=== PATIENT | female | born 1940 | race Caucasian/White ===

== ENCOUNTER → 2017-05-05 | Outpatient (CLI) | payer MEDICARE, OTHER ==
[~2017-05-05] MED LIST: ASPI81TA94 PO; ATOR40TA24 PO; BARIUM SULFATE 148 GM POWDER ONE; BARIUM SULFATE 240 ML ORAL SUS (NECTAR) ONE; CEP250 PO; CEPH500T7 PO; METO-235 PO; METO100T20 PO; METO50TA19 PO; MULT-865 PO; RANI-324 PO; UBID100C48 PO; [UNRECOGNIZED DRUG - CODE] PO
--- NOTE | 2017-05-05 15:06 | SLP MODIFIED BARIUM SWALLOW ---
Speech Language Pathology Modified Barium Swallow Evaluation Report Date of Evaluation: 05-05-17 Patient Name: Violet Carmen Patient : 1940 Physician: Michael Chavez MD Clinician: Nalini Yi M.S., [facility]-FASHION DIRECTOR BACKGROUND The patient is a 76 yr old female. She was referred for an MBS to assess swallow structure and function as indicated by s/s of pharyngeal dysphagia including globus sensation. Pt reported symptoms at approximate level xiphoid process during the evaluation with regular food consistencies and the barium pill. She has a past medical history of GERD and is currently taking prescription and over the counter medications. She had an anterior fusion of cervical vertebrae approx 20 years ago and plate and screws were visualized on the x-ray. Oxygen Supplementation: No Level of Consciousness: Non altered Cognitive/Linguistic: intact Orientation: x4 Language: -expressive: nonaphasic -receptive: nonaphasic Speech: -non-apraxic -non-dysarthric Voice -Dysphonia: none -Nasal emission: No -Hypernasality: No -Wet Vocal Quality: No Non-verbal Oral Structure and Function: within functional limits for speech and swallow Pain with Swallow: Denies pain but describes a globus sensation inferior to larynx which she describes as "uncomfortable". She also reported that she occasionally feels some mild pain in the back of her neck at approximate level C5/C6 when dysphagia symptoms are severe. MODIFIED BARIUM SWALLOW In conjunction with radiology, lateral view with trials of the following consistencies: thin barium liquid (noncarbonated), barium marked pureed, mechanical soft, and regular food consistencies, and a 1cm barium pill. ORAL STAGE Thin Liquids: no evidence of dysphagia . WNL Pureed Foods: no evidence of dysphagia . WNL Mechanical Soft Foods: no evidence of dysphagia . WNL Regular Foods: no evidence of dysphagia . WNL. PHARYNGEAL STAGE Thin Liquid: no evidence of dysphagia WNL. Pureed Food: no evidence of dysphagia WNL. Mechanical Soft Foods: no evidence of dysphagia WNL. Regular Food Consistency: no evidence of dysphagia WNL. Penetration/Aspiration Scale*: Thin liquid: Score of 1= Contrast does not enter airway Puree: Score of 1= Contrast does not enter airway Soft and regular solids: Score of 1= Contrast does not enter airway *(Luis et al. 1996) ESOPHAGEAL STAGE Peristaltic movement appears to be WNL Cervical Esophagus: Materials witnessed clearing from cervical esophagus WNL. Pt reports that she occasionally feels some mild pain in the back of her neck at approximate level C5/C6 when dysphagia symptoms (globus sensation) are severe. Thoracic Esophagus: Pill lodged in mid 1/3 or esophagus. Pt correctly localized the position of the lodged pill and reported discomfort in that area. LILLY: Non witnessed. Laryngopharyngeal Reflux (LPR) None witnessed. BARIUM PILL: 1cm barium pill taken with thin liquids lodged in middle 1/3 of esophagus. Several bites of solids and liquids were used to dislodge the pill. SUMMARY Aspiration Risk: Low. No oral or pharyngeal stage dysphagia witnessed. No laryngeal penetration or aspiration witnessed. Esophageal Dysphagia suspected with possible stenosis or diverticulum in approximately middle 1/3 or esophagus. A 1cm barium pill taken with thin liquids lodged in middle 1/3 of esophagus. The patient accurately localized the position of the lodged pill and reported discomfort in that area. Several bites of solids and liquids were necessary to dislodge the pill. The pill then entered the stomach without further s/s of dysphagia RECOMMENDATIONS 1. Further Evaluation: Upper GI to further assess for possible esophageal dysphagia 2. Speech Therapy: Not recommended at this time. 3. Education provided: small bites, take pills with purees to assist with esophageal clearance. Thank you for this referral. Please call [phone] to contact the FASHION DIRECTOR. Nalini Yi M.S., [facility]-FASHION DIRECTOR Physician Signature Date MTDD
--- NOTE | 2017-05-05 17:00 | RADIOLOGY IMAGING REPORT ---
FACILITY: [facility] - [place] PATIENT NAME: Violet Carmen : 1940 MR: [id number] V: [id number] EXAM DATE: ORDERING PHYSICIAN: EUFEMIA LATHAM TECHNOLOGIST: Location: [facility] [place] Patient: Violet Carmen : 1940 Visit/Account:[id number] Date of Sevice: 05/05/2017 Exam type: ESOPH VIDEO SWALLOWING History: feeling of things getting stuck but never does Comparison: None. Findings: The modified barium swallow was performed by the speech pathologist. The patient received thin bariu m and various solids substances and a barium tablet. There is moderate esophageal dysphasia. The 12 mm barium tablet was lodged in the midesophagus. The tablet did not pass distally into the stomach until the patient swallowed many boluses of barium and food substances. Please see the speech pathol ogist report for complete details. The fluoroscopy dose area product was 555.37 micro-Booth per meter squared IMPRESSION: 1. As above Report Dictated By: Kenzie Hernandez MD at 05/05/2017 4:54 PM Report E-Signed By: Kenzie Hernandez MD at 05/05/2017 4:55 PM WSN:[email or web address]
== END ==
LOC: RAD 01:18
PROVIDERS: ATTEND Internal Medicine
DX: R13.19 Other dysphagia (principal)
CPT/HCPCS: 74230

== ENCOUNTER → 2017-12-05 | Outpatient (CLI) | payer MEDICARE, OTHER ==
[~2017-12-05] MED LIST changes: +ACET500T68 PO; +ASPI-1471 PO; -BARIUM SULFATE 148 GM POWDER ONE; -BARIUM SULFATE 240 ML ORAL SUS (NECTAR) ONE; +CINN500C12 PO; +MAGN250T34 PO; +NAPR-1043 PO; +OMEP-125 PO; -RANI-324 PO; +RANI-366 PO; +[UNRECOGNIZED DRUG - CODE] PO
== END ==
LOC: LAB 14:10
PROVIDERS: ATTEND Family Medicine
DX: E11.9 Type 2 diabetes mellitus without complications (principal)
CPT/HCPCS: 36415; 83036; 84443

== ENCOUNTER → 2017-12-23 | Outpatient (CLI) | payer MEDICARE, OTHER ==
--- NOTE | 2017-12-30 13:16 | RADIOLOGY IMAGING REPORT ---
FACILITY: [facility] - [place] PATIENT NAME: LAURI MIKE : [id number] MR: [id number] V: [id number] EXAM DATE: [id number] ORDERING PHYSICIAN: RIKY GRACIA TECHNOLOGIST: Betty Fuentes PROCEDURE: MAMMOGRAM SCREENING LEFT UNILATERAL WITH CAD ASSISTED INTERPRETATION & 3D TOMOSYNTHESIS COMPARISON: 11/30/16 & priors to 04/13/12 INDICATIONS: screening/Previous Right mastectomy FINDINGS: Left breast parenchyma is heterogeneously dense. There are no mammographic findings concerning for malignancy. No significant interval change. DIAGNOSTIC CATEGORY 1--NEGATIVE. RECOMMENDATIONS: ROUTINE MAMMOGRAM AND CLINICAL EVALUATION. IMPRESSION: BIRADS 1: Negative. Follow up screening mammogram in 1 year. Dictated by: Michael Beard on 12/23/2017 at 15:57 Transcribed by: ALTON on 12/26/2017 at 9:59 Approved by: Corey Metzger on 12/30/2017 at 13:16 [facility]
== END ==
LOC: MAMO 02:13
PROVIDERS: ATTEND Family Medicine
DX: Z12.31 Encounter for screening mammogram for malignant neoplasm of breast (principal); Z85.3 Personal history of malignant neoplasm of breast; Z90.11 Acquired absence of right breast and nipple
CPT/HCPCS: 77063; 77067

== ENCOUNTER → 2018-05-08 | Outpatient (CLI) | payer MEDICARE, OTHER ==
[~2018-05-08] MED LIST changes: +ALBU2.5V36 INH; +BENZ200C15 PO; +PRED20TA6 PO
--- NOTE | 2018-05-08 16:30 | RADIOLOGY IMAGING REPORT ---
FACILITY: PATIENT NAME: Violet Carmen : 1940 MR: [id number] V: [id number] EXAM DATE: ORDERING PHYSICIAN: RIKY GRACIA TECHNOLOGIST: Location: [facility] [place] Patient: Violet Carmen : 1940 Visit/Account:[id number] Date of Sevice: 05/08/2018 DEXA Scan Clinical history: Postmenopausal. Comparison: DEXA scan from 04/07/2016. LUMBAR SPINE: The bone mineral density (BMD) measured from L1-L4 correlates with a Z-score of -4.2 and a T-score of -6.4 which is osteoporosis as defined by the World Health Organization. The corresponding risk of f racture in the lumbar spine is greater than 16 times increased compared with a young adult reference population. This value has decrease by 68.5 % since the prior study. More than 5% change is conside red significant. HIP: Bone mineral density (BMD) measured in the LEFT total hip region correlates with a Z-score 1.8 and a T-score of -0.4 which is normal as defined by the World Health Organization. The corresponding risk of fracture in the hip is Not i ncreased compared to a young adult reference population. This value has decrease by -3.8 % since the prior study. More than 5% change is considered significant. T score left femoral neck -1 Bone mineral density (BMD) measured in the Femoral Neck region measures 0.898 g/cm?. IMPRESSION: 1. Lumbar spine: Osteoporosis. There has been 68.5% decrease in the bone mineral density since the previous exam. 2. Left Total Hip: Normal. There has been 3.8% decrease in the bone mineral density since the previ ous exam. 3. Femoral Neck: Bone Mineral Density is 0.898 g/cm? The next DEXA scan of this patient should include the following sites: L1-L4 and the left hip. FRAX? WHO Fracture Risk Assessment Tool link: <http://www.shef.ac.uk/FRAX/tool.jsp?locationValue=9> PLEASE NOTE: 1) The World Health Organization defines low BMD as follows: T-score Normal > -1 Osteopenia < -1 and > -2.5 Osteoporosis < -2.5 without fractures Established osteoporosis < -2.5 with fractures 2) In general, you may wish to consider: Diagnosis Treatment Follow-up DEXA Normal BMD Prevention 2-3 years Osteopenia Prevention/therapy 1-2 years Osteoporosis Therapy Yearly 3) Fracture risk estimated from the T-score is more accurate for vertebral fractures (often spontane ous) than for hip fractures. Report Dictated By: Kenzie Hernandez MD at 05/08/2018 4:22 PM Report E-Signed By: Kenzie Hernandez MD at 05/08/2018 4:25 PM WSN:[email or web address]
== END ==
LOC: RAD 04:28
PROVIDERS: ATTEND Family Medicine
DX: Z78.0 Asymptomatic menopausal state (principal); M81.0 Age-related osteoporosis without current pathological fracture
CPT/HCPCS: 77080

== ENCOUNTER → 2018-05-08 | Outpatient (CLI) | payer MEDICARE, OTHER ==
--- NOTE | 2018-05-08 15:52 | RADIOLOGY IMAGING REPORT ---
FACILITY: [facility] PATIENT NAME: Violet Carmen : 1940 MR: [id number] V: [id number] EXAM DATE: ORDERING PHYSICIAN: JODI VARGAS TECHNOLOGIST: Location: [facility] - [place] Patient: Violet Carmen : 1940 Visit/Account:[id number] Date of Sevice: 05/08/2018 2 VIEWS CHEST INDICATION: Cough for 1.5 weeks. Wheezing. COMPARISON: None available FINDINGS: Cardiomediastinal silhouette and pulmonary vessels within normal limits. There is no focal infiltrate or lobar consolidation. There is no pneumothorax or pleural effusion. No nodule. Upper abdomen is unremarkable. No acute bony abnormality. Significant scoliotic curvatures the spin e. Postsurgical change to the lower cervical spine spine without sequelae. Surgical clips seen in t he right axilla. IMPRESSION: 1. No acute cardiopulmonary process. Report Dictated By: Pranav Meriad at 05/08/2018 3:44 PM Report E-Signed By: Pranav Merida at 05/08/2018 3:47 PM WSN:[id number]
== END ==
LOC: RAD 15:13
PROVIDERS: ATTEND Nurse Practitioner Primary Care
DX: R05 Cough (principal)
CPT/HCPCS: 71046

== ENCOUNTER → 2018-08-15 | Outpatient (CLI) | payer MEDICARE, OTHER ==
[~2018-08-15] MED LIST changes: +OMEP40CA48 PO
--- NOTE | 2018-08-15 14:27 | EKG ---
FACILITY: [facility] PATIENT NAME: LAURI MIKE : [id number] MR: [id number] V: [id number] EXAM DATE: ORDERING PHYSICIAN: RIKY GRACIA TECHNOLOGIST: SHELLY Test Reason : I49.9, R00.0 Blood Pressure : / mmHG Vent. Rate : 074 BPM Atrial Rate : 074 BPM P-R Int : 150 ms QRS Dur : 076 ms QT Int : 406 ms P-R-T Axes : 079 061 070 degrees QTc Int : 450 ms Normal sinus rhythm Possible Left atrial enlargement Cannot rule out Anteroseptal infarct , age undetermined Abnormal ECG No previous ECGs available Confirmed by VANIA EGAN ([id number]) on 08/15/2018 3:35:09 PM Referred By: BASIL Confirmed By:VANIA EGAN
== END ==
LOC: RESP 14:06
PROVIDERS: ATTEND Family Medicine
DX: R94.31 Abnormal electrocardiogram [ECG] [EKG] (principal)
CPT/HCPCS: 93005

== ENCOUNTER → 2018-09-14 | Outpatient (CLI) | payer MEDICARE, OTHER | LOC: US 00:18 | PROVIDERS: ATTEND Internal Medicine | DX: R00.2 Palpitations (principal); R94.31 Abnormal electrocardiogram [ECG] [EKG]; I10 Essential (primary) hypertension | CPT/HCPCS: 93306 ==

== ENCOUNTER → 2018-09-14 | Outpatient (CLI) | payer MEDICARE, OTHER ==
--- NOTE | 2018-09-18 19:13 | RT HOLTER TEST ---
FACILITY: [facility] PATIENT NAME: LAURI MIKE : [id number] MR: [id number] V: [id number] EXAM DATE: ORDERING PHYSICIAN: RIKY GRACIA TECHNOLOGIST: CURLY Saavedra-up date: 2018-09-14 14:06:00 Duration: 47:59:00 Test Indications: TACHY Medications: SEE LIST 375602 QRS complexes 127 Ventricular ectopics which represent <1 % of total QRS comp. 905 Supraventricular ectopics which represent <1 % of total QRS comp. * Paced QRS complexes which represent % of total QRS comp. VENTRICULAR ECTOPY 125 Isolated 0 Bigeminal Cycles 1 Couplets 0 Runs 0 Beats in Runs * Beats LONGEST at * BPM at :: -- * Beats FASTEST at * BPM at :: -- SUPRAVENTRICULAR ECTOPY 817 Isolated 7 Couplets 6 Runs 74 Beats in Runs 27 Beats LONGEST at 122 BPM at 21:12:44 2018-09-15 3 Beats FASTEST at 168 BPM at 03:26:05 2018-09-15 HEART RATES 52 MIN at 06:21:12 2018-09-16 82 AVG 136 MAX at 10:14:22 2018-09-15 LONGEST RR 1.352 secs at 06:39:45 2018-09-16 S-T LEVELS Channel 1 -12.800 mm MIN at 14:06:00 2018-09-14 -12.800 mm MAX at 14:06:00 2018-09-14 Channel 2 -12.800 mm MIN at 14:06:00 2018-09-14 -12.800 mm MAX at 14:06:00 2018-09-14 Channel 3 -12.800 mm MIN at 14:06:00 2018-09-14 -12.800 mm MAX at 14:06:00 2018-09-14 Sinus rhythm Intermittent Atrial fibrillation Premature ventricular complexes Premature supraventricular complexes Confirmed by ROEL BEAULIEU ([id number]) on 09/18/2018 7:12:52 PM Referred By: Overread By: ROEL BEAULIEU
== END ==
LOC: RESP 01:14
PROVIDERS: ATTEND Family Medicine
DX: R00.0 Tachycardia, unspecified (principal)
CPT/HCPCS: 93225; 93226